=== PATIENT | female | born 1945 | race Asian ===

== ENCOUNTER 2018-01-11 17:34 | Inpatient (IN) | payer OTHER ==
[~2018-01-11] VITALS: Ht 157.5 cm; Wt 71.9 kg
[2018-01-11 20:09] LABS: BASOPHIL % 0.9 % (0-2); PLATELET COUNT 265 x10^3mcL (130-400); RED CELL DISTRIBUTION WIDTH 12.6 % (11.5-14.5)
[2018-01-11 20:23] LABS: CALCIUM 9.6 mg/dL (8.5-10.1); CARBON DIOXIDE 27.7 mmol/L (21-32); CHLORIDE SERUM 104 mmol/L (98-107); CREATININE SERUM 0.8 mg/dL (0.6-1.0); GFR1 > 60 mL/min; GLUCOSE SERUM 119 mg/dL (74-106); POTASSIUM SERUM 3.9 mmol/L (3.5-5.1); SODIUM SERUM 138 mmol/L (136-145)
[2018-01-11 20:27] LABS: ALBUMIN 3.9 g/dL (3.4-5.0); ALKALINE PHOSPHATASE 72 U/L (46-116); ALT/SGPT 29 U/L (14-59); AST/SGOT 12 U/L (15-37); BILIRUBIN TOTAL 0.2 mg/dL (0.20-1.00); TOTAL PROTEIN, SERUM 8.2 g/dL (6.4-8.2)
[2018-01-11 23:47] VITALS: BP 186/76
[2018-01-11 23:54] VITALS: Ht 157.5 cm; Wt 71.9 kg
[2018-01-12 05:53] VITALS: BP 147/69
[2018-01-12 06:51] LABS: BASOPHIL % 0.4 % (0-2); PLATELET COUNT 235 x10^3mcL (130-400); RED CELL DISTRIBUTION WIDTH 12.7 % (11.5-14.5)
[2018-01-12 07:29] LABS: T4(THYROXINE) 5.3 ug/dL (4.7-13.3)
[2018-01-12 08:40] VITALS: BP 150/70
[2018-01-12 10:54] LABS: ERYTHROCYTE SED RATE 30 mm/hr (0-30)
[2018-01-12 11:57] VITALS: BP 128/83; BP 142/69
[2018-01-12 17:00] VITALS: BP 172/69
[2018-01-12 18:46] VITALS: BP 164/86
[2018-01-12 20:13] VITALS: BP 134/77
[2018-01-13 05:48] VITALS: BP 130/67
[2018-01-13 09:05] VITALS: BP 138/67
[2018-01-13 10:54] LABS: RHEUMATOID ARTHRITIS FACTOR <10.0 IU/mL (0.0-13.9)
[2018-01-13 13:33] VITALS: BP 135/65
[2018-01-13 15:28] VITALS: BP 135/65
[2018-01-14 07:19] LABS: RAPID PLASMA REAGIN Non Reactive (Non Reactive)
== END 2018-01-13 15:45 | disposition short-term general hospital (02) | DRG 65 ==
LOC: ED 17:34 → DU 22:19
PROVIDERS: Internal Medicine; Specialist
DX: I63.9 Cerebral infarction, unspecified (principal); G81.94 Hemiplegia, unspecified affecting left nondominant side; I10 Essential (primary) hypertension; I25.10 Atherosclerotic heart disease of native coronary artery without angina pectoris; J44.9 Chronic obstructive pulmonary disease, unspecified; M60.9 Myositis, unspecified; E78.4 Other hyperlipidemia; Z68.26 Body mass index [BMI] 26.0-26.9, adult
CPT/HCPCS: 83880; 86431; 97110-GP; Q0092